=== PATIENT | female | born 1955 | race Caucasian/White ===

== ENCOUNTER 2022-12-09 20:08 | Emergency (ER) | payer MEDICARE ==
[2022-12-09] MEDS ORDERED: Amoxicillin 500 MG Cap PO ONE (23:26)
== END 2022-12-09 23:58 | disposition home or self-care (01) ==
LOC: JD.ED 20:08
DX: J32.0 Chronic maxillary sinusitis (principal); R91.1 Solitary pulmonary nodule; Z88.7 Allergy status to serum and vaccine
CPT/HCPCS: 71045; 99285; A9270; 99283

== ENCOUNTER 2023-05-26 21:24 | Emergency (ER) | payer MEDICARE, MEDICAID ==
[2023-05-26] MEDS: methylPREDNISolone Sodium Succinate 125 MG/2 ML SDV IVPUSH ONE (22:04)
[2023-05-26 22:40] LABS: CORONAVIRUS COVID-19 NAA NEGATIVE (NEGATIVE); INFLUENZA A NAA NEGATIVE (NEGATIVE); RESPIRATORY SYNCYTIAL VIR NAA POSITIVE (NEGATIVE)
[2023-05-26] MEDS: Albuterol/Ipratropium 3.0-0.5 MG/3 ML Neb Soln NEB ONE (22:51)
[2023-05-26] MEDS: Budesonide 0.5 MG/2 ML Neb Susp NEB ONE (22:52)
== END 2023-05-27 00:05 | disposition home or self-care (01) ==
LOC: JD.ED 21:24
DX: J21.0 Acute bronchiolitis due to respiratory syncytial virus (principal); J44.1 Chronic obstructive pulmonary disease with (acute) exacerbation; Z88.7 Allergy status to serum and vaccine; Z79.899 Other long term (current) drug therapy
CPT/HCPCS: 0241U; 71045; 87651; 93005; 96374; 99285; J2930; 93010; 99284